=== PATIENT | female | born 1935 | race Caucasian/White ===

== ENCOUNTER → 2016-06-10 | Outpatient (CLI) | payer OTHER, BC ==
[~2016-06-10] MED LIST: AMBIEN10 MG PO; AMBIEN5 MG PO; ATORVASTATIN CA40 MG PO; Ambien PO; BACTRIM,SEPT1 TABLE1 PO; BONIVA150 MG PO; CALTRATE 600 +1 EAC1 PO; CALTRATE 6001 TABLE1 PO; CLEOCIN300 MG PO; Calcium Carbonate,Ca PO; DAILY VITAMIN1 EAC8 PO; DOCUSATE SODIU100 MG PO; DRONABINOL2.5 MG PO; DUONEB 2.5-0.5 M3 ML AEROSOL; FORTEO20 MICROGR SC; FUROSEMIDE20 MG PO; GABAPENTIN100 MG PO; GABAPENTIN300 MG PO; IRON325 M1 PO; LIDODERM 5% P1 PATCH TD; LOVENOX40 MG/0.4 SC; Levothroid,Synthroid PO; METHADONE10 MG PO; METHADONE5 MG PO; MORPHINE SULFAT15 MG PO; MS CONTIN,ORAMO15 M1 PO; MUCINEX600 MG PO; NORVASC5 MG PO; Neurontin PO; Norvasc PO; OMEPRAZOLE40 M1 PO; OXYCODONE HCL5 MG PO; Ocean Nasal 0.65% BOTH NARES; POLYETHYLENE GL17 GM PO; PREDNISONE20 MG PO; PRILOSEC40 MG PO; PROBIOTIC1 EAC1 PO; Protonix PO; RANITIDINE HCL150 MG PO; SYNTHROID100 MCG PO; SYNTHROID125 MCG PO; SYSTANE BALANCE10 ML BOTH EYES; THERAGRAN1 TABLET PO; Theragran PO; VITAMIN D-3 401 EACH PO; VITAMIN D400 UNIT PO; VOLTAREN 1% GE100 GM TP; Vitamin D PO; ZADITOR 0.100 DROP/5 BOTH EYES; ZANAFLEX2 M1 PO; Zantac,Taladine PO
== END | disposition home or self-care (01) ==
LOC: NUC 09:50
DX: S21.209A Unspecified open wound of unspecified back wall of thorax without penetration into thoracic cavity, initial encounter (principal); M40.209 Unspecified kyphosis, site unspecified
CPT/HCPCS: 78315; A9503

== ENCOUNTER → 2016-06-22 | Outpatient (CLI) | payer OTHER, BC ==
[~2016-06-22] MED LIST changes: +ATORVASTATIN CA80 MG PO; +CALTRATE PLUS1 EACH PO; +REVATIO10 MG/1 ML PO; +SYSTANE 0.3-0.1 EACH BOTH EYES; +ZOLPIDEM TARTRA10 MG PO
== END | disposition home or self-care (01) ==
LOC: NUC 08:52
DX: S21.209D Unspecified open wound of unspecified back wall of thorax without penetration into thoracic cavity, subsequent encounter (principal)
CPT/HCPCS: 78806; 78999; A9556

== ENCOUNTER → 2016-06-29 | Outpatient (CLI) | payer OTHER, BC | END | disposition home or self-care (01) | LOC: PICC 12:56 | DX: M86.431 Chronic osteomyelitis with draining sinus, right radius and ulna (principal) | CPT/HCPCS: 76937 ==

== ENCOUNTER → 2017-07-16 | Outpatient (CLI) | payer OTHER, BC | END | disposition home or self-care (01) | LOC: NUC 09:46 | DX: L03.818 Cellulitis of other sites (principal); M17.0 Bilateral primary osteoarthritis of knee; M19.072 Primary osteoarthritis, left ankle and foot; M19.071 Primary osteoarthritis, right ankle and foot; Z98.1 Arthrodesis status; Z96.661 Presence of right artificial ankle joint; Z96.9 Presence of functional implant, unspecified | CPT/HCPCS: 78315; A9503 ==